=== PATIENT | female | born 2000 | race African-American/Black ===

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

== ENCOUNTER 2018-03-08 17:24 | Emergency (ER) | payer OTHER ==
[~2018-03-08] VITALS: Ht 180.3 cm; Wt 115.2 kg
[~2018-03-08 17:24] MED LIST: AMOX1TAB61 PO; CYCL5TAB PO; IBUP-1007 PO; ONDA4TAB10 SL; PRED-220 PO
--- NOTE | 2018-03-08 18:27 | PHYS DOC ---
Past Medical History Past Medical History: No Pertinent History, Other Additional Past Medical Histor: abscess in throat Past Surgical History: No Surgical History Additional Past Surgical Histo: " I'm supposed to have my tonsils out" Alcohol Use: None Drug Use: None Adult General Chief Complaint Chief Complaint: ABDOMINAL PAIN IN HPI HPI Patient is a 17 year old female who presents with lower abdomen/pelvic pain. This is been present since March 03. Patient reports that the first day of her last menstrual period was January 31. Patient took a home test on March 03 that was positive. Patient was seen at another hospital on March 05 for this discomfort and reports that they were unable to perform an ultrasound due to staffing issues. Patient denies taking any home medicines to help with the pain. Nothing seems to make it better or worse. There is no radiation of the pain. There is no discomfort with urination. No change in bowel habits, no bleeding, no diarrhea. Pain is moderate in intensity. It has not changed over time. Patient reports that this is her first .[] Review of Systems Review of Systems Constitutional: Denies fever or chills [] Eyes: Denies change in visual acuity, redness, or eye pain [] HENT: Denies nasal congestion or sore throat [] Respiratory: Denies cough or shortness of breath [] Cardiovascular: No chest pain or palpitations[] GI: Denies abdominal pain, nausea, vomiting, bloody stools or diarrhea [] : Denies dysuria or hematuria, no vaginal bleeding [] Musculoskeletal: Denies back pain or joint pain [] Integument: Denies rash or skin lesions [] Neurologic: Denies headache, focal weakness or sensory changes [] Endocrine: Denies polyuria or polydipsia [] All other systems were reviewed and found to be within normal limits, except as documented in this note. Current Medications Current Medications Current Medications Medications (Trade) Dose Ordered Sig/Maya Start Time Stop Time Status Last Admin Dose Admin Acetaminophen (Tylenol) 500 mg 1X ONCE 03/08/18 18:30 03/08/18 18:31 DC 03/08/18 18:13 500 MG Allergies Allergies Allergies Coded Allergies Type Severity Reaction Last Updated Verified No Known Drug Allergies 11/13/13 No Physical Exam Physical Exam Constitutional: Well developed, well nourished, no acute distress, non-toxic appearance. [] HENT: Normocephalic, atraumatic, bilateral external ears normal, oropharynx moist, no oral exudates, nose normal. [] Eyes: PERRLA, EOMI, conjunctiva normal, no discharge. [] Neck: Normal range of motion, no tenderness, supple, no stridor. [] Cardiovascular:Heart rate regular rhythm, no murmur [] Lungs & Thorax: Bilateral breath sounds clear to auscultation [] Abdomen: Bowel sounds normal, soft, no tenderness, no masses, no pulsatile masses. [] exam: Skin: Warm, dry, no erythema, no rash. [] Back: No tenderness, no CVA tenderness. [] Extremities: No tenderness, no cyanosis, no clubbing, ROM intact, no edema. [] Neurologic: Alert and oriented X 3, normal motor function, normal sensory function, no focal deficits noted. [] Psychologic: Affect normal, judgement normal, mood normal. [] Current Patient Data Vital Signs Vital Signs Date Time Temp Pulse Resp B/P (MAP) Pulse Ox O2 Delivery O2 Flow Rate FiO2 03/08/18 17:55 98.2 95 18 141/65 (90) 99 Room Air 98.2 Lab Values Laboratory Tests Test 03/08/18 18:15 03/08/18 18:47 White Blood Count 7.3 x10^3/uL (4.0-11.0) Red Blood Count 3.93 x10^6/uL (3.50-5.40) Hemoglobin 11.8 g/dL (12.0-15.5) L Hematocrit 33.9 % (36.0-47.0) L Mean Corpuscular Volume 86 fL (79-100) Mean Corpuscular Hemoglobin 30 pg (25-35) Mean Corpuscular Hemoglobin Concent 35 g/dL (31-37) Red Cell Distribution Width 12.6 % (11.5-14.5) Platelet Count 243 x10^3/uL (140-400) Neutrophils (%) (Auto) 51 % (31-73) Lymphocytes (%) (Auto) 30 % (24-48) Monocytes (%) (Auto) 11 % (0-9) H Eosinophils (%) (Auto) 8 % (0-3) H Basophils (%) (Auto) 0 % (0-3) Neutrophils # (Auto) 3.7 x10^3uL (1.8-7.7) Lymphocytes # (Auto) 2.2 x10^3/uL (1.0-4.8) Monocytes # (Auto) 0.8 x10^3/uL (0.0-1.1) Eosinophils # (Auto) 0.6 x10^3/uL (0.0-0.7) Basophils # (Auto) 0.0 x10^3/uL (0.0-0.2) Urine Collection Type Unknown Urine Color Yellow Urine Clarity Clear Urine pH 6.0 Urine Specific [place] 1.025 Urine Protein Negative mg/dL (NEG-TRACE) Urine Glucose (UA) Negative mg/dL (NEG) Urine Ketones (Stick) Negative mg/dL (NEG) Urine Blood Negative (NEG) Urine Nitrite Negative (NEG) Urine Bilirubin Negative (NEG) Urine Urobilinogen Dipstick 1.0 mg/dL (0.2 mg/dL) Urine Leukocyte Esterase Negative (NEG) Urine RBC 0 /HPF (0-2) Urine WBC 1-4 /HPF (0-4) Urine Squamous Epithelial Cells Many /LPF Urine Bacteria Moderate /HPF (0-FEW) Urine Mucus Marked /LPF Maternal Serum HCG Beta Subunit 609 mIU/mL (0-5) H Sodium Level 140 mmol/L (136-145) Potassium Level 3.8 mmol/L (3.5-5.1) Chloride Level 105 mmol/L (98-107) Carbon Dioxide Level 27 mmol/L (21-32) Anion Gap 8 (6-14) Blood Urea Nitrogen 10 mg/dL (7-20) Creatinine 0.6 mg/dL (0.6-1.0) Estimated GFR (Cockcroft-Gault) 155.8 BUN/Creatinine Ratio 17 (6-20) Glucose Level 95 mg/dL (70-99) Calcium Level 8.8 mg/dL (8.5-10.1) Total Bilirubin 0.3 mg/dL (0.2-1.0) Aspartate Amino Transferase (AST) 22 U/L (15-37) Alanine Aminotransferase (ALT) 23 U/L (14-59) Alkaline Phosphatase 46 U/L (46-116) Total Protein 7.5 g/dL (6.4-8.2) Albumin 3.4 g/dL (3.4-5.0) Albumin/Globulin Ratio 0.8 (1.0-1.7) L POC Urine HCG, Qualitative Hcg positive (Negative) Laboratory Tests 03/08/18 18:15 Laboratory Tests 03/08/18 18:15 EKG EKG [] Radiology/Procedures Radiology/Procedures ultrasound less than 14 weeks showed a bicornate uterus, no evidence of an ectopic .[] Course & Med Decision Making Course & Med Decision Making Pertinent Labs and Imaging studies reviewed. (See chart for details) ED course: Patient arrived, was placed in bed, in tolerate exam well. Patient did receive Tylenol which did ameliorate the pain somewhat. Patient tolerated both the ultrasound as well as pelvic exam with any complications. Findings were discussed with the patient who voiced understanding. All questions were answered. Medical decision making: No evidence of an ectopic , no evidence of PID , no evidence of ABO/Rh issues. No evidence of urinary tract infection.[] Dragon Disclaimer Dragon Disclaimer This electronic medical record was generated, in whole or in part, using a voice recognition dictation system. Departure Departure Impression: Primary Impression: Abdominal pain during in first trimester Additional Impression: Bicornate uterus Disposition: HOME, SELF-CARE Condition: GOOD Referrals: UNKNOWN PCP NAME (PCP) Patient Instructions: Abdominal Pain During Additional Instructions: Follow-up with your regular doctor or [facility] in 2 days. Your quantitative test was 609 today. This number should double every 2-3 days any normal . Call your primary doctor or [facility] tomorrow to have this test repeated by them. You can take Tylenol as directed on the package, as needed for pain. Avoid ibuprofen, Motrin and Advil are common trade names for ibuprofen , and Aleve which is also Naprosyn. These will shrink the amount of amniotic fluid around the baby. Scripts Vits W-Ca,Fe,Fa(<1MG) ( VITAMINS) 1 Each Tablet 1 EACH PO DAILY, #30 TAB Prov: ANITA CEE DO 03/08/18 Problem Qualifiers ANIAT CEE DO Mar 08, 2018 18:27
[2018-03-08] MEDS ORDERED: ACETAMINOPHEN 500 MG TABLET PO ONE (18:30)
[2018-03-08 18:33] LABS: BASO % 0 % (0-3); EOS # 0.6 x10^3/uL (0.0-0.7); EOS % 8 % (0-3); HEMATOCRIT 33.9 % (36.0-47.0); HEMOGLOBIN 11.8 g/dL (12.0-15.5); LYMPH # 2.2 x10^3/uL (1.0-4.8); LYMPH % 30 % (24-48); MEAN CORPUSCULAR HEMOGLOBIN 30 pg (25-35); MEAN CORPUSCULAR HGB CONC 35 g/dL (31-37); MEAN CORPUSCULAR VOLUME 86 fL (79-100); MONO # 0.8 x10^3/uL (0.0-1.1); MONO % 11 % (0-9); NEUT # 3.7 x10^3uL (1.8-7.7); NEUT % 51 % (31-73); PLATELET COUNT 243 x10^3/uL (140-400); RED BLOOD COUNT 3.93 x10^6/uL (3.50-5.40); RED CELL DISTRIBUTION WIDTH 12.6 % (11.5-14.5); WHITE BLOOD COUNT 7.3 x10^3/uL (4.0-11.0)
[2018-03-08 18:40] LABS: CALCIUM 8.8 mg/dL (8.5-10.1); CREATININE 0.6 mg/dL (0.6-1.0); GFR 155.8; POTASSIUM 3.8 mmol/L (3.5-5.1)
[2018-03-08 18:43] LABS: BILIRUBIN,URINE NEGATIVE (NEG); CLARITY,URINE CLEAR; COLOR,URINE YELLOW; NITRITE,URINE NEGATIVE (NEG); PROTEIN,URINE NEGATIVE (NEG-TRACE)
[2018-03-08 18:47] LABS: ALBUMIN 3.4 g/dL (3.4-5.0); ALBUMIN/GLOBULIN RATIO 0.8 (1.0-1.7); TOTAL BILIRUBIN 0.3 mg/dL (0.2-1.0); TOTAL PROTEIN 7.5 g/dL (6.4-8.2)
[2018-03-08 18:53] LABS: SQUAMOUS EPITHELIAL CELL,UR MANY /LPF
[2018-03-08 18:54] LABS: BACTERIA,URINE MODERATE /HPF (0-FEW); RBC,URINE 0 /HPF (0-2)
--- NOTE | 2018-03-08 19:43 | RAD ---
EXAM: Obstetrics sonogram. HISTORY: Cramping. Positive test. TECHNIQUE: Sonographic imaging of the pelvis was performed. COMPARISON: None. FINDINGS: There is a single intrauterine gestational sac with a mean sac diameter of 3.6 mm, corresponding with a gestational age of 5 weeks and 1 day. No yolk sac or pole is seen at this early gestation. The gestational sac is in the right horn of a bicornuate uterus. There is a small amount of pelvic free fluid. There is a 1.7 cm complex right ovarian cyst. There is normal blood flow within the right ovary. The left ovary is not seen. The uterus is normal in size. No subchorionic hematoma is seen. IMPRESSION: 1. Early gestational sac with a mean sac diameter corresponding with a gestational age of 5 weeks and 1 day. No pole seen at this early gestation. Short-term follow-up can be performed to confirm viability if clinically indicated. 2. Bicornuate uterus. The gestational sac is within the right uterine horn. 3. 1.7 cm complex right ovarian cyst. 4. Small of nonspecific pelvic free fluid. 5. Nonvisualization of the left ovary. Electronically signed by: Soumya Aldana MD (03/08/2018 7:39 PM) [facility]
[2018-03-08] MEDS ORDERED: PREN1TAB58 PO (19:47)
[2018-03-08 20:00] VITALS: BP 160/84
[2018-03-10 14:29] LABS: GC PROBE Negative (Negative)
== END 2018-03-08 20:00 | disposition home or self-care (01) ==
LOC: ER 17:24
DX: O34.01 Maternal care for unspecified congenital malformation of uterus, first trimester (principal); Q51.3 Bicornate uterus; Z3A.01 Less than 8 weeks gestation of pregnancy
CPT/HCPCS: 36415; 76801; 80053; 81001; 81025; 84702; 85025; 86900; 86901; 87086; 87491; 87591; 99285; Q0111

== ENCOUNTER 2019-10-31 19:11 | Emergency (ER) | payer OTHER ==
[~2019-10-31] VITALS: Ht 185.4 cm; Wt 115.4 kg
[~2019-10-31 19:11] MED LIST changes: +PREN1TAB58 PO
[2019-10-31 20:24] VITALS: BP 153/71
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
[2019-10-31] MEDS ORDERED: CYCL10TA2 PO (20:57)
[2019-10-31] MEDS ORDERED: NAPR-683 PO (20:57)
== END 2019-10-31 21:23 | disposition home or self-care (01) ==
LOC: ER 19:11
DX: S66.812A Strain of other specified muscles, fascia and tendons at wrist and hand level, left hand, initial encounter (principal); R51 Headache; Z98.890 Other specified postprocedural states; V89.2XXA Person injured in unspecified motor-vehicle accident, traffic, initial encounter; Y93.89 Activity, other specified; Y92.413 State road as the place of occurrence of the external cause; Y99.8 Other external cause status
CPT/HCPCS: 99283